=== PATIENT | male | born 1975 | race African-American/Black ===

== ENCOUNTER 2020-07-25 22:30 | Emergency (ER) | payer OTHER ==
[~2020-07-25 22:30] MED LIST: ANTIVERT25 MG PO; ASPIRIN EC81 MG PO; COLCRYS0.6 MG PO; COZAAR100 MG PO; DICLOFENAC SODI75 MG PO; INDOMETHACIN50 MG PO; LOSARTAN POTASS50 MG PO; MEDROL 4MG DOSEP4 MG PO; NAPROXEN500 MG PO; NORCO 5-325 TA1 EACH PO; NORVASC5 MG PO; PEPCID AC20 MG PO; PREDNISONE 20MG20 MG PO; PREDNISONE50 MG PO; TRAMADOL HCL50 MG PO
[2020-07-25 23:41] LABS: BASOPHIL 0.7 % (0-2); EOSINOPHIL 2.5 % (0-5); HCT 48.7 % (42.0-52.0); HGB 15.4 g/dl (13.2-18.0); LYMPHOCYTE 37.2 % (15-48); MCH 30.5 pg (25.0-31.0); MCHC 31.6 g/dL (32.0-36.0); MCV 96.4 fL (78.0-100.0); MONOCYTE 10.1 % (0-12); NEUTROPHIL 48.3 % (41-80); NRBC 0; PLT 336 K/uL (150-400); RBC 5.05 M/uL (4.70-6.00); WBC 9.1 K/uL (4.0-10.5)
[2020-07-26 00:05] LABS: ALBUMIN 3.5 g/dL (3.4-5.0); BILIRUBIN - TOTAL 0.3 mg/dL (0.2-1.0); BUN/CREAT RATIO (CALC) 15.4 RATIO; CREATININE 1.04 mg/dL (0.67-1.17); GLOBULIN (CALCULATION) 4.2 g/dL; TOTAL PROTEIN 7.7 g/dL (6.4-8.2)
[2020-07-26] MEDS ORDERED: CLONIDINE HCL0.1 MG PO (02:09)
== END 2020-07-26 02:38 | disposition home or self-care (01) ==
LOC: FER 22:30
PROVIDERS: Emergency Medicine
DX: R07.89 Other chest pain (principal); I10 Essential (primary) hypertension; R00.2 Palpitations; F17.210 Nicotine dependence, cigarettes, uncomplicated; Z79.899 Other long term (current) drug therapy; Z88.8 Allergy status to other drugs, medicaments and biological substances; Z88.6 Allergy status to analgesic agent
CPT/HCPCS: 36415; 71045; 80053; 84484; 85025; 85379; 93005

== ENCOUNTER 2020-09-05 13:59 | Emergency (ER) | payer OTHER ==
[~2020-09-05 13:59] MED LIST changes: +CLONIDINE HCL0.1 MG PO
[2020-09-05] MEDS ORDERED: MEDROL 4MG DOSEP4 MG PO (19:05)
== END 2020-09-05 19:14 | disposition home or self-care (01) ==
LOC: FER 13:59
DX: S90.01XA Contusion of right ankle, initial encounter (principal); M79.671 Pain in right foot; I10 Essential (primary) hypertension; M54.9 Dorsalgia, unspecified; G89.29 Other chronic pain; F17.210 Nicotine dependence, cigarettes, uncomplicated; Z79.891 Long term (current) use of opiate analgesic; Z88.6 Allergy status to analgesic agent; Z88.8 Allergy status to other drugs, medicaments and biological substances; Z91.013 Allergy to seafood; W19.XXXA Unspecified fall, initial encounter
CPT/HCPCS: 36415; 73630; 84550; J1100

== ENCOUNTER 2020-09-07 15:46 | Emergency (ER) | payer SELFPAY ==
[2020-09-07] MEDS ORDERED: NORCO 5-325 TA1 EACH PO (17:47)
== END 2020-09-07 18:08 | disposition home or self-care (01) ==
LOC: FER 15:46
DX: S80.01XA Contusion of right knee, initial encounter (principal); F17.210 Nicotine dependence, cigarettes, uncomplicated; Z91.013 Allergy to seafood; Z88.6 Allergy status to analgesic agent; W19.XXXA Unspecified fall, initial encounter; Y92.009 Unspecified place in unspecified non-institutional (private) residence as the place of occurrence of the external cause
CPT/HCPCS: 73564

== ENCOUNTER 2021-02-12 08:38 | Emergency (ER) | payer OTHER ==
[2021-02-12 09:09] LABS: BASOPHIL 0.8 % (0-2); EOSINOPHIL 3.1 % (0-5); HCT 40.5 % (42.0-52.0); HGB 13.1 g/dl (13.2-18.0); LYMPHOCYTE 32.9 % (15-48); MCH 29.8 pg (25.0-31.0); MCHC 32.3 g/dL (32.0-36.0); MPV 9.1 fL (6.0-9.5); NEUTROPHIL 52.5 % (41-80); NRBC 0; PLT 311 K/uL (150-400); RDW 17.2 % (11.5-14.0); WBC 9.1 K/uL (4.0-10.5)
[2021-02-12 09:29] LABS: INR 1.03 (0.9-1.2); PROTHROMBIN TIME 12.9 SECONDS (11.8-13.4); PTT 35.7 SECONDS (24.4-34.7)
[2021-02-12 09:42] LABS: ALBUMIN 3.2 g/dL (3.4-5.0); BILIRUBIN - TOTAL 0.1 mg/dL (0.2-1.0); BUN/CREAT RATIO (CALC) 14.9 RATIO; CREATININE 0.87 mg/dL (0.67-1.17); GLOBULIN (CALCULATION) 4.3 g/dL; POTASSIUM 4.1 mmol/L (3.5-5.1); TOTAL PROTEIN 7.5 g/dL (6.4-8.2)
[2021-02-12] MEDS ORDERED: ROBAXIN750 MG PO (11:29)
[2021-02-12] MEDS ORDERED: MEDROL 4MG DOSEP4 MG PO (11:29)
[2021-02-12] MEDS ORDERED: NORCO 5-325 TA1 EACH PO (11:29)
== END 2021-02-12 11:41 | disposition home or self-care (01) ==
LOC: FER 08:38
PROVIDERS: Emergency Medicine
DX: R07.89 Other chest pain (principal); M47.22 Other spondylosis with radiculopathy, cervical region; Z88.6 Allergy status to analgesic agent; Z91.013 Allergy to seafood; Z88.8 Allergy status to other drugs, medicaments and biological substances
CPT/HCPCS: 36415; 71045; 72125; 80053; 84484; 85025; 85610; 85730; 93005; J1170; J2405

== ENCOUNTER 2021-04-01 18:42 | Emergency (ER) | payer OTHER ==
[~2021-04-01 18:42] MED LIST changes: +ROBAXIN750 MG PO
[2021-04-01 22:51] LABS: BASOPHIL 0.9 % (0-2); EOSINOPHIL 1.6 % (0-5); HCT 44.5 % (42.0-52.0); HGB 14.2 g/dl (13.2-18.0); LYMPHOCYTE 37.7 % (15-48); MCH 29.2 pg (25.0-31.0); MCHC 31.9 g/dL (32.0-36.0); MCV 91.6 fL (78.0-100.0); MONOCYTE 8.6 % (0-12); MPV 9.7 fL (6.0-9.5); NEUTROPHIL 50.4 % (41-80); NRBC 0; PLT 302 K/uL (150-400); RBC 4.86 M/uL (4.70-6.00); RDW 15.7 % (11.5-14.0)
[2021-04-01 22:53] LABS: WBC 8.6 K/uL (4.0-10.5)
[2021-04-02 00:12] LABS: BUN 11 mg/dL (7-18); CHLORIDE 104 mmol/L (98-107); CO2 (BICARBONATE) 23 mmol/L (21-32); CREATININE 0.97 mg/dL (0.67-1.17); GLUCOSE 105 mg/dL (74-106); POTASSIUM 4.2 mmol/L (3.5-5.1); TOTAL PROTEIN 8.3 g/dL (6.4-8.2)
[2021-04-02 00:13] LABS: ALBUMIN 3.4 g/dL (3.4-5.0); ALKALINE PHOSHATASE 109 U/L (46-116); ALT 35 U/L (16-63); AST 19 U/L (15-37); BILIRUBIN - TOTAL 0.3 mg/dL (0.2-1.0); GLOBULIN (CALCULATION) 4.9 g/dL; LIPASE 100 U/L (73-393)
[2021-04-02 01:08] LABS: BILIRUBIN NEGATIVE (NEGATIVE); BLOOD NEGATIVE Ery/uL (NEGATIVE); CLARITY CLEAR (CLEAR); COLOR YELLOW (YELLOW); GLUCOSE (U) NORMAL (NORMAL); LEUKOCYTES NEGATIVE Leu/uL (NEGATIVE); NITRITE NEGATIVE (NEGATIVE); PROTEIN NEGATIVE (NEGATIVE); UROBILINOGEN 0.2 mg/dL (0.2-1.0); pH 5.5 (5.0-9.0)
== END 2021-04-02 01:26 | disposition home or self-care (01) ==
LOC: FER 18:42
PROVIDERS: Emergency Medicine Emergency Medical Services
DX: R53.1 Weakness (principal); R53.83 Other fatigue; R55 Syncope and collapse; I10 Essential (primary) hypertension; F17.210 Nicotine dependence, cigarettes, uncomplicated; Z20.822 Contact with and (suspected) exposure to COVID-19; Z91.013 Allergy to seafood; Z88.6 Allergy status to analgesic agent
CPT/HCPCS: 36415; 71045; 80053; 81003; 83690; 84484; 85025; 93005; G0480; J7030; U0002

== ENCOUNTER 2021-04-25 21:07 | Emergency (ER) | payer OTHER ==
[2021-04-25 21:40] LABS: BASOPHIL 0.8 % (0-2); EOSINOPHIL 2.5 % (0-5); HCT 42.4 % (42.0-52.0); HGB 13.7 g/dl (13.2-18.0); LYMPHOCYTE 32.2 % (15-48); MCH 29.6 pg (25.0-31.0); MCHC 32.3 g/dL (32.0-36.0); MCV 91.6 fL (78.0-100.0); MONOCYTE 12.3 % (0-12); MPV 9.7 fL (6.0-9.5); NEUTROPHIL 51.6 % (41-80); NRBC 0; PLT 317 K/uL (150-400); RBC 4.63 M/uL (4.70-6.00); RDW 15.4 % (11.5-14.0); WBC 10.2 K/uL (4.0-10.5)
[2021-04-25 21:59] LABS: ALBUMIN 3.6 g/dL (3.4-5.0); BILIRUBIN - TOTAL 0.3 mg/dL (0.2-1.0); BUN/CREAT RATIO (CALC) 15.8 RATIO; CREATININE 1.14 mg/dL (0.67-1.17); GLOBULIN (CALCULATION) 4.3 g/dL; POTASSIUM 4.5 mmol/L (3.5-5.1); TOTAL PROTEIN 7.9 g/dL (6.4-8.2)
== END 2021-04-26 05:45 | disposition other institution (70) ==
LOC: FER 21:07
PROVIDERS: Emergency Medicine
DX: M00.9 Pyogenic arthritis, unspecified (principal); I10 Essential (primary) hypertension; F17.200 Nicotine dependence, unspecified, uncomplicated; Z91.013 Allergy to seafood; Z79.899 Other long term (current) drug therapy
CPT/HCPCS: 36415; 71045; 73070; 80053; 84484; 84550; 85025; 86140; 93005; 96365; 96366; 96368; 96375; 96376; J0696; J1170; J2250; J3370; J7030; J7050; U0002